=== PATIENT | female | born 1965 | race Caucasian/White ===

== ENCOUNTER 2020-04-04 09:12 | Outpatient (CLI) | payer BC ==
--- NOTE | 2020-04-04 11:40 | MRI ---
MRI LEFT KNEE: Date: 04/04/2020 PROVIDED CLINICAL HISTORY: Left knee pain. FINDINGS: The anterior cruciate ligament, posterior cruciate ligament, medial collateral ligament, and lateral collateral ligamentous complex demonstrate an intact MR appearance, as does the extensor mechanism. There is a complex nondisplaced tear involving the body-anterior horn junction of the lateral meniscu s. There is an oblique tear involving the body of the medial meniscus contacting the tibial articular kilpatrick rface seen to best advantage on coronal images 18 and 19. There is cartilage absence involving large portions of the median ridge and lateral facet of the lanier lla. No additional full thickness articular cartilage loss is evident. There is a moderate knee joint effusion with conspicuous Muñoz's cyst. No focal concerning regional m arrow or muscular signal abnormality is evident. IMPRESSION: 1. Medial and lateral meniscal tears as described. 2. Advanced patellar chondrosis. 3. Moderate knee joint effusion with conspicuous Muñoz's cyst. POS: KARAN
== END 2020-04-04 09:13 | disposition home or self-care (01) ==
LOC: SCSMRI 09:12
PROVIDERS: ATTEND Orthopaedic Surgery
DX: M25.562 Pain in left knee (principal); S83.282A Other tear of lateral meniscus, current injury, left knee, initial encounter; S83.242A Other tear of medial meniscus, current injury, left knee, initial encounter; M25.462 Effusion, left knee

== ENCOUNTER 2025-05-30 12:57 | Outpatient (CLI) | payer OTHER ==
[2025-05-30 14:16] LABS: #Basophils 0.08 10x3/uL (0.0-0.2); #Eosinophils 0.05 10x3/uL (0.0-0.7); #Monocytes 0.95 10x3/uL (0.11-0.59); #Neutrophils 6.66 10x3/uL (1.40-6.50); %Basophils 0.8 % (0.0-1.0); %Eosinophils 0.5 % (0.0-10.0); %Lymphocytes 25.7 % (21.0-51.0); %Monocytes 9.1 % (0.0-10.0); %Neutrophils 63.4 % (42.0-75.0); Hematocrit 41.1 % (36.0-47.0); Hemoglobin 13.5 g/dL (12.0-16.0); Mean Corpuscular Hemoglobin 28.6 pg (27.0-31.0); Mean Corpuscular Volume 87.1 fL (78.0-98.0); Platelet Count 307 10x3/uL (130-400); Red Blood Cell (RBC) Count 4.72 mill/uL (4.20-5.40); White Blood Cell (WBC) Count 10.48 10x3/uL (4.8-10.8)
[2025-05-30 14:20] LABS: Bacteria/HPF None Seen HPF (None Seen); Glucose, Urine (Dipstick) Normal (Negative); Leukocyte 25 Leu/uL (Negative); Protein, Urine (Dipstick) Negative (Neg-Trace); RBC/HPF 0-3 HPF (0-3); Specific Gravity, Urine 1.031 (1.002-1.036)
[2025-05-30 14:31] LABS: INR-International Normal Ratio 1.1; Prothrombin Time 13.8 sec (12.0-14.7)
[2025-05-30 14:35] LABS: Anion Gap 16 mmol/L (10-20); BUN (Urea Nitrogen) 16 mg/dL (9.8-20.1); Calc. Creatinine Clearance 0 mL/min (70-130); Calcium 9.6 mg/dL (7.8-10.44); Carbon Dioxide 24 mmol/L (22-29); Chloride 107 mmol/L (98-107); Glucose 88 mg/dL (70-105); Potassium 4.2 mmol/L (3.5-5.1); Sodium 143 mmol/L (136-145)
== END 2025-05-30 12:58 | disposition home or self-care (01) ==
LOC: LABBT 12:57
PROVIDERS: ATTEND Orthopaedic Surgery
DX: Z01.818 Encounter for other preprocedural examination (principal); M17.12 Unilateral primary osteoarthritis, left knee
CPT/HCPCS: 71046; 80048; 81001; 85025; 85610; 87081; 93005; 93010

== ENCOUNTER 2025-05-30 13:55 | Outpatient (CLI) | payer OTHER | END 2025-05-30 13:56 | disposition home or self-care (01) | LOC: CT 13:55 | PROVIDERS: ATTEND Orthopaedic Surgery | DX: Z01.818 Encounter for other preprocedural examination (principal); M17.12 Unilateral primary osteoarthritis, left knee ==

== ENCOUNTER 2025-06-06 07:58 | Observation (INO) | payer OTHER ==
[2025-05-30 13:19] VITALS: BMI 34.4
[2025-06-06] MEDS ORDERED: Ropivacaine 0.5% HCl/PF (150 MG/30 ML VIAL) ONE (08:55)
[2025-06-06] MEDS ORDERED: Tranexamic Acid 1,000 MG/10 ML VIAL ONE ×2 (09:04→14:51)
[2025-06-06] MEDS ORDERED: Vancomycin HCl 1.5 GM VIAL ONE (09:05)
[2025-06-06] MEDS ORDERED: CEFAZOLIN 2 GM VIAL ONE (09:05)
[2025-06-06] MEDS ORDERED: Lidocaine 1% PF 5 ML VIAL ONE (09:06)
[2025-06-06] MEDS ORDERED: Lidocaine 2% 6 ML (Jelly) SYR ONE (09:06)
[2025-06-06] MEDS ORDERED: PROPOFOL 20 ML ONE (09:06)
[2025-06-06] MEDS ORDERED: Ondansetron PF 4 MG/2 ML Vial ONE (09:06)
[2025-06-06] MEDS ORDERED: fentaNYL PF 100 MCG/2 ML SYRINGE ONE (09:06)
[2025-06-06] MEDS ORDERED: HYDROcodone/Acetaminophen 10/325 mg Tablet PO PRN (09:45)
[2025-06-06] MEDS ORDERED: Ropivacaine 0.2% 550 ML 550 ML NERVE BLCK SCH (09:45)
[2025-06-06] MEDS ORDERED: Ondansetron PF 4 MG/2 ML Vial IVP PRN (09:45)
[2025-06-06] MEDS ORDERED: diphenhydrAMINE 25 MG CAP PO PRN (11:39)
[2025-06-06] MEDS ORDERED: HYDROmorphone 0.5 MG/0.5 ML SYRINGE ONE ×4 (12:12→17:33)
[2025-06-06] MEDS ORDERED: Ketorolac Tromethamine 30 MG (1 mL) VIAL ONE (12:30)
[2025-06-06] MEDS: Ketorolac Tromethamine 30 MG (1 mL) VIAL IVP SCH (16:15)
[2025-06-06 17:04] VITALS: BMI 34.4
[2025-06-06] MEDS: Ondansetron PF 4 MG/2 ML Vial IVP PRN (21:17)
[2025-06-06] MEDS: Gabapentin 300 MG CAP PO SCH (21:19)
[2025-06-06] MEDS: Aspirin 81 mg Enteric Coated Tablet PO SCH (21:19)
[2025-06-06] MEDS: Melatonin 3 MG TAB PO SCH (21:26)
[2025-06-06] MEDS: HYDROcodone/Acetaminophen 10/325 mg Tablet PO PRN (21:29)
[2025-06-07] MEDS: Acetaminophen 325 MG TAB PO PRN (01:23)
[2025-06-07 06:11] LABS: Hematocrit 34.8 % (36.0-47.0); Hemoglobin 11.2 g/dL (12.0-16.0); Mean Corpuscular Hemoglobin 28.1 pg (27.0-31.0); Mean Corpuscular Volume 87.4 fL (78.0-98.0); Platelet Count 245 10x3/uL (130-400); Red Blood Cell (RBC) Count 3.98 mill/uL (4.20-5.40); White Blood Cell (WBC) Count 14.27 10x3/uL (4.8-10.8)
[2025-06-07] MEDS: Ferrous Gluconate 324 MG TAB PO SCH (09:11)
[2025-06-07] MEDS: Multivitamin W/ Minerals 1 TAB PO SCH (09:11)
[2025-06-07] MEDS: Senokot S 8.6-50 MG TAB PO SCH (09:11)
[2025-06-07 12:23] VITALS: BP 111/72; TEMP 97.3
== END 2025-06-07 16:54 | disposition home or self-care (01) ==
LOC: SDC 07:58 → SURG B 11:39
PROVIDERS: ADMIT Orthopaedic Surgery; ATTEND Orthopaedic Surgery
PROC: 0SRD0JZ Replacement of Left Knee Joint with Synthetic Substitute, Open Approach (ICD-10-PCS; principal; 2025-06-06)
PROC: 3E0T3BZ Introduction of Anesthetic Agent into Peripheral Nerves and Plexi, Percutaneous Approach (ICD-10-PCS; 2025-06-06)
DX: M17.12 Unilateral primary osteoarthritis, left knee (principal); I10 Essential (primary) hypertension; G43.909 Migraine, unspecified, not intractable, without status migrainosus; E66.9 Obesity, unspecified; Z68.34 Body mass index [BMI] 34.0-34.9, adult; Z96.651 Presence of right artificial knee joint; Z90.49 Acquired absence of other specified parts of digestive tract; Z91.041 Radiographic dye allergy status; Z88.5 Allergy status to narcotic agent; Z91.011 Allergy to milk products; Z79.899 Other long term (current) drug therapy
CPT/HCPCS: 0055T; 27447; 64448; 85027; A4306; C1713; C1776; C1889; J0665; J1100; J1171; J1885; J2250; J2704; J2795; J7030; P9045